=== PATIENT | male | born 1980 | race Caucasian/White ===

== ENCOUNTER 2023-05-05 06:15 | Emergency (ER) | payer OTHER, SELFPAY ==
[2023-05-05 06:20] VITALS: BP 161/84; PULSE 90; RESP 18; TEMP 36.6; O2SAT 100; BMI 32.8
[2023-05-05 06:30] VITALS: BP 161/84; PULSE 77; O2SAT 100
[2023-05-05 07:00] VITALS: PULSE 79; O2SAT 100
--- NOTE | 2023-05-05 07:02 | ED_ITS ---
HPI - Skin/Abscess/Foreign Bdy General Chief complaint: Skin/Abscess/Foreign Body Stated complaint: abd pain Time Seen by Provider: 05/05/23 06:46 Source: patient Mode of arrival: Ambulatory Limitations: no limitations History of Present Illness HPI narrative: Patient healthy 42-year-old male presents today with abdominal pain. He reports that he has a lipoma on his abdomen however with the last 3-4 days he is had increasing redness pain and swelling. It is right at his belt and pant line. No fever. He had an ultrasound which showed clear margins. Related Data Previous Rx's Medication Instructions Recorded sulfamethoxazole 800 1 tab PO BID 7 days #14 tabs 05/05/23 mg-trimethoprim 160 mg tablet (Bactrim DS) Review of Systems Review of Systems ROS Unobtainable: All systems reviewed & are unremarkable except as noted in HPI and below Patient History Social History Smoking Status: Never smoker Smoking Status: Never smoker alcohol intake frequency: a few times a month Substance Use Type: does not use Exam Initial Vital Signs Initial Vital Signs: Vital Signs Temperature 97.8 F 05/05/23 06:20 Pulse Rate 90 05/05/23 06:20 Respiratory Rate 18 05/05/23 06:20 Blood Pressure 161/84 H 05/05/23 06:20 Pulse Oximetry 100 05/05/23 06:20 Oxygen Delivery Method Room Air 05/05/23 06:20 GENERAL: Well-appearing, well-nourished and in no acute distress. CARDIOVASCULAR: peripheral pulses in tact, cap refill <2 sec RESPIRATORY: No respiratory distress, speaks in full sentences without di fficulty EXTREMITIES: Normal range of motion, no clubbing or edema. Neurovascularly intact NEUROLOGICAL: Cranial nerves II through XII grossly intact. Normal gait and speech. SKIN: Mid line inferior to the umbilicus is 2 cm x 3 cm fluctuant area with surrounding erythema Procedures Abscess I/D I&D #1: Site: abdomen Local Anesthetic: lidocaine 1% and with epi Amount of anesthesia used (mL): 2 Technique: incised with #11 blade Amount of fluid expressed (mL): 2 Irrigation: No Course Vital Signs Vital signs: Vital Signs - 8 hr 05/05/23 06:20 Temperature 97.8 F Pulse Rate 90 Respiratory Rate 18 Blood Pressure 161/84 H Pulse Oximetry 100 Oxygen Delivery Method Room Air MDM - Skin/Abscess/Foreign Bdy MDM Narrative Medical decision making narrative: Patient presents today with erythema on abdomen presumed abscess versus cyst. No lipoma is really appreciated on exam but difficult to tell with overlying infection. It was easily I&D'd. No evidence of sepsis. Culture pending Discharge Plan Departure Patient Disposition: Home Clinical Impression: Abscess of skin or subcutaneous tissue Instructions: DI for Incision and Drainage Activity Restrictions/Additional Instructions: *You have been diagnosed with skin abscess *What to do: At this time keep dressing on. You should have improvement in symptoms in the next 24-72 hours *Continue to take medications as directed Bactrim 1 tablet twice a day for 7 days *Follow up with your primary care provider in 2-3 days or call [phone] *Return to ER if you should have increased pain redness fever or any new, worsening or concerning symptoms Prescriptions: New sulfamethoxazole-trimethoprim [Bactrim DS] 800-160 mg tablet 1 tab PO BID 7 Days Qty: 14 0RF Referrals: ProviderCarlos [Primary Care Provider] - Stand Alone Forms: Patient Portal/API
[2023-05-05 07:28] VITALS: O2SAT 99
[2023-05-05 07:29] VITALS: BP 150/93
[2023-05-05 07:31] VITALS: BP 150/93; RESP 16; O2SAT 97
== END 2023-05-05 07:34 | disposition home or self-care (01) ==
PROVIDERS: Emergency Provider Emergency Medicine
DX: L02.211 Cutaneous abscess of abdominal wall (principal)
CPT/HCPCS: 10060; 87070; 87075; 87205; 99283